=== PATIENT | female | born 1965 | race American Indian/Alaskan Native ===

== ENCOUNTER 2017-12-28 11:50 | Emergency (ER) | payer BC ==
[2017-12-28 12:52] VITALS: BP 127/80
[2017-12-28 14:09] LABS: Bacteria,Urine 1+ /HPF (Negative); Bilirubin,Urine NEG (Negative); Blood,Urine LG (Negative); Color,Urine Yellow (Yellow); Urobilinogen,Urine < 2.0 mg/dL (<2.0)
[2017-12-28 14:11] LABS: RBC,Urine > 182.0 /HPF (0.0-6.0); WBC,Urine > 182.0 /HPF (0.0-6.0)
--- NOTE | 2017-12-28 14:40 | Emergency Department Report ---
ED Female HPI - General Chief complaint: Urogenital-Female Stated complaint: PAINFUL URINATION Time Seen by Provider: 12/28/17 14:38 Source: patient Mode of arrival: Ambulatory Limitations: No Limitations - History of Present Illness Initial comments: 52-year-old female past medical history none presents with complaint of dysuria for 1 week. Denies fevers chills nausea vomiting abdominal pain. Primarily complaining of increased urinary frequency with sensation of burning with urination. Denies vaginal discharge. Patient is awake alert and oriented 3 and nontoxic appearing. Denies any flank pain. MD Complaint: dysuria Onset/Timin -: week(s) Location: suprapubic Severity: mild Quality: burning Consistency: intermittent Worsens with: urination - Related Data Previous Rx's Medication Instructions Recorded Last Taken Type Phenazopyridine [Pyridium] 100 mg PO TIDAC #6 tab 12/28/17 Unknown Rx Sulfamethoxazole/Trimethoprim 1 each PO BID #6 tablet 12/28/17 Unknown Rx [Bactrim DS TAB] Allergies Allergy/AdvReac Type Severity Reaction Status Date / Time No Known Allergies Allergy Verified 12/28/17 12:48 ED Review of Systems ROS: Stated complaint: PAINFUL URINATION Other details as noted in HPI Constitutional: denies: chills, fever Eyes: denies: eye pain, eye discharge, vision change ENT: denies: ear pain, throat pain Respiratory: denies: cough, shortness of breath, wheezing Cardiovascular: denies: chest pain, palpitations Endocrine: no symptoms reported Gastrointestinal: denies: abdominal pain, nausea, diarrhea Genitourinary: dysuria. denies: urgency, discharge Musculoskeletal: denies: back pain, joint swelling, arthralgia Skin: denies: rash, lesions Neurological: denies: headache, weakness, paresthesias Psychiatric: denies: anxiety, depression Hematological/Lymphatic: denies: easy bleeding, easy bruising ED Past Medical Hx - Past Medical History Previous Medical History?: No - Surgical History Past Surgical History?: No - Social History Smoking Status: Never Smoker Substance Use Type: None - Medications Home Medications: Home Medications Medication Instructions Recorded Confirmed Last Taken Type Phenazopyridine [Pyridium] 100 mg PO TIDAC #6 tab 12/28/17 Unknown Rx Sulfamethoxazole/Trimethoprim 1 each PO BID #6 tablet 12/28/17 Unknown Rx [Bactrim DS TAB] ED Physical Exam - General Limitations: No Limitations General appearance: alert, in no apparent distress - Head Head exam: Present: atraumatic, normocephalic - Eye Eye exam: Present: normal appearance - ENT ENT exam: Present: mucous membranes moist - Neck Neck exam: Present: normal inspection - Respiratory Respiratory exam: Present: normal lung sounds bilaterally. Absent: respiratory distress - Cardiovascular Cardiovascular Exam: Present: regular rate, normal rhythm. Absent: systolic murmur, diastolic murmur, rubs, gallop - GI/Abdominal GI/Abdominal exam: Present: soft, normal bowel sounds - Extremities Exam Extremities exam: Present: normal inspection - Back Exam Back exam: Present: normal inspection - Neurological Exam Neurological exam: Present: alert, oriented X3 - Psychiatric Psychiatric exam: Present: normal affect, normal mood - Skin Skin exam: Present: warm, dry, intact, normal color. Absent: rash ED Course Vital Signs 12/28/17 12:49 Temperature 99.3 F Pulse Rate 73 Respiratory 16 Rate Blood Pressure 127/80 O2 Sat by Pulse 99 Oximetry ED Medical Decision Making - Medical Decision Making A/P: Urinary tract infection 1-short course Pyridium. 3 day course of Bactrim DS [email or web address]_[email or web address] 3-advised patient to return to the ED for any fevers chills nausea vomiting or flank pain or worsening symptoms. Critical care attestation.: If time is entered above; I have spent that time in minutes in the direct care of this critically ill patient, excluding procedure time. ED Disposition Clinical Impression: Dysuria Urinary tract infection Qualifiers: Urinary tract infection type: acute cystitis Hematuria presence: without hematuria Qualified Code(s): N30.00 - Acute cystitis without hematuria Disposition: TO HOME OR SELFCARE Is pt being admited?: No Does the pt Need Aspirin: No Condition: Stable Instructions: Dysuria (ED), Urinary Tract Infection in Women (ED), Phenazopyridine (By mouth) Prescriptions: Phenazopyridine [Pyridium] 100 mg PO TIDAC #6 tab Sulfamethoxazole/Trimethoprim [Bactrim DS TAB] 1 each PO BID #6 tablet Referrals: YANICK HARDWICK MD [Primary Care Provider] - 3-5 Days [facility] [Provider Group] - 3-5 Days Time of Disposition: 14:56
== END 2017-12-28 15:04 | disposition home or self-care (01) ==
LOC: ED 11:50
DX: N39.0 Urinary tract infection, site not specified (principal)
CPT/HCPCS: 81001; 87076; 87086; 87186; 99283